=== PATIENT | male | born 1970 | race Caucasian/White ===

== ENCOUNTER 2016-09-26 08:33 | Inpatient (IN) | payer OTHER ==
[2016-09-26 09:30] VITALS: BMI 21.4
--- NOTE | 2016-09-26 12:05 | HP ---
COWS - Scale Resting Pulse: 1= MD 81-100 Sweatin=Flushed/Facial Moisture Restless Observation: 3= Extraneous Movement Pupil Size: 2= Moderately Dilated Bone or Joint Aches: 2= Severe Diffuse Aches Runny Nose/ Eye Tearin= Runny Nose/Eyes GI Upset > 30mins: 3= Vomiting/Diarrhea Tremor Observation: 2= Slight Tremor Visible Yawning Observation: 2= >3x During Session Anxiety or Irritability: 2=Irritable/Anxious Goose Flesh Skin: 0=Smooth Skin COWS Score: 21 Admission ROS BHS - HPI Chief Complaint: I NEED HELP TO STOP USING HEROIN,COCAINE Allergies/Adverse Reactions: Allergies Allergy/AdvReac Type Severity Reaction Status Date / Time Fish Containing Products Allergy Severe Rash Verified 09/26/16 10:30 History of Present Illness: THIS 45 YEARS OLD MALE WITH HEROIN AND COCAINE DEPENDENCE,WITHDRAWAL SYMPTOM, LAST DETOX 06/28 [place] HIV SINCE 09/26 NON COMPLIANCE,LAST MEDICATED 6 MONTHS AGO NICOTINE DEPENDENCE HEPATITIS C WEIGHT LOSS LONGEST PERIOD OF SOBRIETY 2 YEARS Exam Limitations: No Limitations - Ebola screening Have you traveled outside of the country in the last 21 days: No Have you been sick,other than usual withdrawal symptoms: No - Review of Systems Constitutional: Chills, Loss of Appetite, Malaise, Night Sweats, Changes in sleep, Weakness, Unintentional Wgt. Loss EENT: reports: Tearing, Nose Congestion Respiratory: reports: No Symptoms reported Cardiac: reports: No Symptoms Reported GI: reports: Diarrhea, Nausea, Vomiting, Abdominal cramping : reports: No Symptoms Reported Musculoskeletal: reports: Back Pain, Joint Pain, Muscle Pain, Joint Stiffness Integumentary: reports: Dryness Neuro: reports: Headache, Tremors Endocrine: reports: No Symptoms Reported Hematology: reports: No Symptoms Reported, Other (HIV) Psychiatric: reports: No Sypmtoms Reported, Judgement Intact, Mood/Affect Appropiate, Orientated x3 Patient History - Patient Medical History Hx Anemia: No Hx Asthma: No Hx Chronic Obstructive Pulmonary Disease (COPD): No Hx Cancer: No Hx Cardiac Disorders: No Hx Congestive Heart Failure: No Hx Hypertension: No Hx Hypercholesterolemia: No Hx Pacemaker: No HX Cerebrovascular Accident: Yes (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 ADMITTED [place]) Hx Seizures: No Hx Dementia: No Hx Diabetes: No Hx Gastrointestinal Disorders: No Hx Liver Disease: No Hx Genitourinary Disorders: No Hx Sexually Transmitted Disorders: No Hx Renal Disease (ESRD): No Hx Thyroid Disease: No Hx Human Immunodeficiency Virus (HIV): Yes (SINCE 09/26 NON COMPLIANCE LASTMEDICATION 6 MONTHS) Hx Hepatitis C: Yes (UNDER THE CARE OF PMD) Hx Depression: Yes (NO MED) Hx Suicide Attempt: No Hx Bipolar Disorder: No Hx Schizophrenia: No Other Medical History: NO SUICIDAL,NO HOMICIDAL - Patient Surgical History Past Surgical History: Yes Other Surgical History: Nasal sx R forearm abscess 09/21/16 [place],NON COMPLIANCE - PPD History Previous Implant?: Yes Documented Results: Negative w/o proof Implanted On Prior [facility] Admission?: No PPD to be Administered?: Yes - Smoking Cessation Smoking history: Current every day smoker Have you smoked in the past 12 months: Yes Aproximately how many cigarettes per day: 20 Hx Chewing Tobacco Use: No Initiated information on smoking cessation: Yes 'Breaking Loose' booklet given: 09/26/16 - Substance & Tx. History Hx Alcohol Use: No Hx Substance Use: Yes Substance Use Type: Cocaine, Heroin - Substances Abused Heroin Route: Injection Frequency: Daily Amount used: 20 bags Age of first use: 38 Date of Last Use: 09/26/16 Cocaine Route: Injection Frequency: 3-6 times per week Amount used: $20 Age of first use: 38 Date of Last Use: 09/22/16 Family Disease History - Family Disease History Family History: Denies Admission Physical Exam BHS - Vital Signs Vital Signs: Vital Signs - 24 hr 09/26/16 09:24 Temperature 97.1 F L Pulse Rate 85 Respiratory 18 Rate Blood Pressure 133/74 - Physical General Appearance: Yes: Moderate Distress, Tremorous, Irritable, Sweating, Anxious HEENTM: Yes: Within Normal Limits, Normal Voice, SAV, Pharynx Normal, Nasal Congestion Respiratory: Yes: Lungs Clear, Normal Breath Sounds, No Respiratory Distress Neck: Yes: Within Normal Limits Breast: Yes: Within Normal Limits Cardiology: Yes: Within Normal Limits, Regular Rhythm, Regular Rate, S1, S2 Abdominal: Yes: Within Normal Limits, Normal Bowel Sounds, Non Tender, Flat, Soft Genitourinary: Yes: Within Normal Limits Back: Yes: Muscle Spasm Musculoskeletal: Yes: Back pain, Joint Stiffness, Muscle Pain Extremities: Yes: Within Normal Limits, Normal Range of Motion, Tremors Neurological: Yes: silver lap machine tender II-XII NML intact, Fully Oriented, Alert, Motor Strength 5/5 Integumentary: Yes: Dry (S/P I AND D ABSCESS OF RIGHT FOREARM ON 09/21/16 AT [place] NON COMPLIANCE WITH MEDICATION) Lymphatic: Yes: Within Normal Limits - Diagnostic (1) Opioid dependence with withdrawal Current Visit: Yes Status: Acute (2) Cocaine dependence Current Visit: Yes Status: Acute (3) Abscess Current Visit: Yes Status: Acute (4) Hepatitis C Current Visit: Yes Status: Acute (5) Weight loss Current Visit: Yes Status: Acute (6) HIV (human immunodeficiency virus infection) Current Visit: Yes Status: Acute (7) Old cerebrovascular accident (CVA) without late effect Current Visit: Yes Status: Acute Cleared for Admission [facility] - Detox or Rehab [facility] Level of Care: Medically Managed Detox Regimen/Protocol: Methadone [facility] Breath Alcohol Content Breath Alcohol Content: 0 Urine Drug Screen - Results Drug Screen Negative: No Urine Drug Screen Results: SANA-Cocaine, OPI-Opiates, OXY-Oxycodone
[2016-09-26] MEDS ORDERED: MAGNESIUM HYDROX 2400MG/30ML ORAL SUSPENSION 30 ML CUP PO PRN (12:20)
[2016-09-26] MEDS ORDERED: MENTHOL/PHENOL 1 EACH UD MM PRN (12:20)
[2016-09-26] MEDS ORDERED: guaiFENesin/D-METHORPHAN HB 10 ML UNIT-DOSE CUPS PO PRN (12:20)
[2016-09-26] MEDS ORDERED: MAG HYDROX/AL HYDROX/SIMETH 30 ML UNIT-DOSE CUP PO PRN (12:20)
[2016-09-26] MEDS ORDERED: IBUPROFEN 400 MG TABLET (FP) PO PRN (12:20)
[2016-09-26] MEDS ORDERED: diphenhydrAMINE HCL 50 MG CAPSULE PO PRN (12:20)
[2016-09-26] MEDS ORDERED: MAGNESIUM CITRATE 300 ML BOTTLE PO PRN (12:20)
[2016-09-26] MEDS ORDERED: P-EPHED 60MG/TRIPROLIDI 2.5MG TABLET PO PRN (12:20)
[2016-09-26] MEDS ORDERED: ACETAMINOPHEN 325 MG TABLET (FP) PO PRN (12:20)
[2016-09-26] MEDS ORDERED: hydrOXYzine PAMOATE 50 MG CAPSULE (FP) PO PRN (12:20)
[2016-09-26] MEDS ORDERED: LOPERAMIDE HCL 2 MG CAPSULE PO PRN (12:20)
[2016-09-26] MEDS ORDERED: METHADONE HCL 10 MG TABLET (FOR DETOX USE ONLY) PO ONE ×2 (12:31→23:00)
[2016-09-26] MEDS: NICOTINE 21 MG/24 HOURS TOPICAL PATCH TD SCH (13:36)
[2016-09-26] MEDS: BACITRACIN 0.9 GM PACKET TP SCH ×2 (13:37→21:50)
[2016-09-26] MEDS: diazePAM 5 MG TABLET PO PRN (13:37)
--- NOTE | 2016-09-26 15:27 | EKG ---
Test Reason : Blood Pressure : / mmHG Vent. Rate : 078 BPM Atrial Rate : 078 BPM P-R Int : 146 ms QRS Dur : 086 ms QT Int : 410 ms P-R-T Axes : 075 041 -10 degrees QTc Int : 467 ms NORMAL SINUS RHYTHM VOLTAGE CRITERIA FOR LEFT VENTRICULAR HYPERTROPHY ABNORMAL ECG NO PREVIOUS ECGS AVAILABLE Confirmed by PROSPER GARZON MD ([id number]) on 09/26/2016 3:27:20 PM Referred By: John Domingeuz Confirmed By:PORSPER GARZON MD
--- NOTE | 2016-09-26 15:31 | CONSULT ---
[facility] Psychiatric Consult - Data Date of interview: 09/26/16 Admission source: [facility] Identifying data: This is 45 years old male with no psychiatric hospitalization history intoxicated with : Opioids, Cocaine and Nicotine Substance Abuse History: - Smoking Cessation. Smoking history: Current every day smoker. Have you smoked in the past 12 months: Yes. Aproximately how many cigarettes per day: 20. Hx Chewing Tobacco Use: No. Initiated information on smoking cessation: Yes. 'Breaking Loose' booklet given: 09/26/16. - Substance & Tx. History. Hx Alcohol Use: No. Hx Substance Use: Yes. Substance Use Type : Cocaine, Heroin. - Substances Abused. Heroin. Route: Injection. Frequency: Daily. Amount used: 20 bags. Age of first use: 38. Date of Last Use: 09/26/16. Cocaine. Route: Injection. Frequency: 3-6 times per week. Amount used: $20. Age of first use: 38. Date of Last Use: 09/22/16 Medical History: This is 45 years old male with no psychiatric hospitalization history intoxicated with : Opioids, Cocaine and Nicotine Psychiatric History: Patient reports history of anxiety, reports insomnia, reports taking Remeron 30mg po qhs prior to admission Physical/Sexual Abuse/Trauma History: Denies Additional Comment: Remeron 30mg po qhs Mental Status Exam - Mental Status Exam Alert and Oriented to: Person Cognitive Function: Fair Patient Appearance: Well Groomed Mood: Sad, Anxious Affect: Mood Congruent Patient Behavior: Cooperative Speech Pattern: Appropriate Voice Loudness: Mildly Soft/Quiet Thought Process: Goal Oriented Thought Disorder: Being Controlled Hallucinations: Denies Suicidal Ideation: Denies Homicidal Ideation: Denies Insight/Judgement: Fair Sleep: Difficulty falling asleep Appetite: Fair Muscle strength/Tone: Normal Gait/Station: Normal Additional Comments: Remeron 30mg po qhs Psychiatric Findings - Problem List ([place] 1, 2,3) (1) Cocaine dependence Current Visit: Yes Status: Acute (2) Opioid dependence with withdrawal Current Visit: Yes Status: Acute (3) Nicotine dependence Current Visit: Yes Status: Acute (4) Drug-induced mood disorder Current Visit: Yes Status: Acute - Initial Treatment Plan Initial Treatment Plan: Remeron 30mg po qhs
[2016-09-26] MEDS: CEPHALEXIN MONOHYDRATE 500 MG CAPSULE (UD) PO SCH ×2 (17:28→23:04)
[2016-09-26 18:42] LABS: URINE APPEARANCE CLEAR; URINE BILIRUBIN NEGATIVE (NEGATIVE); URINE BLOOD NEGATIVE (NEGATIVE); URINE COLOR YELLOW; URINE GLUCOSE (UA) NEGATIVE (NEGATIVE); URINE KETONE NEGATIVE (NEGATIVE); URINE LEUK ESTERASE NEGATIVE (NEGATIVE); URINE NITRITE NEGATIVE (NEGATIVE); URINE UROBILINOGEN NEGATIVE E.U./dl (0.2-1.0)
[2016-09-26 18:45] LABS: URINE PROTEIN 1+ (NEGATIVE)
[2016-09-26 18:54] LABS: URINE MUCUS RARE; URINE RBC 10 /hpf (0-3); URINE WBC 1 /hpf (3-5)
[2016-09-26 20:49] LABS: URINE SPERM RARE
[2016-09-26] MEDS: cloNIDine HCL 0.1 MG TABLET PO SCH (23:03)
[2016-09-26] MEDS: MIRTAZAPINE 30 MG TABLET (FP) PO SCH (23:03)
[2016-09-26] MEDS: THIAMINE HCL 100 MG TABLET (FP) PO SCH (23:03)
[2016-09-27] MEDS: CEPHALEXIN MONOHYDRATE 500 MG CAPSULE (UD) PO SCH ×4 (06:05→23:00)
[2016-09-27] MEDS ORDERED: METHADONE HCL 10 MG TABLET (FOR DETOX USE ONLY) PO ONE (10:00)
[2016-09-27] MEDS: diazePAM 5 MG TABLET PO PRN (10:25)
[2016-09-27] MEDS: BACITRACIN 0.9 GM PACKET TP SCH ×2 (10:25→22:27)
[2016-09-27] MEDS: PRENATAL VITAMINS W/ FOLIC ACID TABLET (FP) PO SCH (10:25)
[2016-09-27] MEDS: NICOTINE 21 MG/24 HOURS TOPICAL PATCH TD SCH (10:25)
[2016-09-27] MEDS: cloNIDine HCL 0.1 MG TABLET PO SCH ×2 (10:25→22:27)
[2016-09-27 10:27] LABS: MCH 29.6 pg (25.7-33.7); MCHC 33.3 g/dl (32.0-35.9); MEAN CELL VOLUME 88.8 fl (80-96); PLATELET COUNT 164 K/MM3 (134-434); RDW 13.8 % (11.9-15.9); WHITE BLOOD COUNT 5.4 K/mm3 (4.0-10.0)
[2016-09-27 10:29] LABS: ALBUMIN 3.2 g/dl (3.4-5.0); ANION GAP 7 (8-16); BILIRUBIN,TOTAL 0.4 mg/dL (0.2-1.0); CALCIUM 8.7 mg/dL (8.5-10.1); CO2 28 mmol/L (21-32); CREATININE 0.8 mg/dL (0.7-1.3); GLUCOSE,RANDOM 122 mg/dL (74-106); SGOT/AST 32 U/L (15-37); SGPT/ALT 43 U/L (12-78); TOT PROT 6.8 g/dl (6.4-8.2)
[2016-09-27 10:30] LABS: ALK PHOS 65 U/L (45-117)
--- NOTE | 2016-09-27 11:47 | PN ---
S COWS - Scale Resting Pulse: 1= [place] 81-100 Sweatin= Chills/Flushing Restless Observation: 3= Extraneous Movement Pupil Size: 2= Moderately Dilated Bone or Joint Aches: 4=Acute Joint/Muscle Pain Runny Nose/ Eye Tearin= Nasal Congestion GI Upset > 30mins: 1= Stomach Cramp Tremor Observation of Outstretched Hands: 2= Slight Tremor Visible Yawning Observation: 1= 1-2x During Session Anxiety or Irritability: 1=Feels Anxious/Irritable Goose Flesh Skin: 0=Smooth Skin COWS Score: 17 S Progress Note (SOAP) Subjective: ANXIETY,IRRITABILITY,"I'M DOPE SICK", INTERMITTENT SLEE. Objective: 09/27/16 11:48 Vital Signs Temperature 97.5 F L 09/27/16 10:39 Pulse Rate 91 H 09/27/16 10:39 Respiratory Rate 20 09/27/16 10:39 Blood Pressure 123/63 09/27/16 10:39 O2 Sat by Pulse Oximetry (%) Laboratory Last Values WBC 5.4 K/mm3 (4.0-10.0) 09/27/16 07:30 RBC 4.52 M/mm3 (4.00-5.60) 09/27/16 07:30 Hgb 13.4 GM/dL (11.7-16.9) 09/27/16 07:30 Hct 40.1 % (35.4-49) 09/27/16 07:30 MCV 88.8 fl (80-96) 09/27/16 07:30 MCHC 33.3 g/dl (32.0-35.9) 09/27/16 07:30 RDW 13.8 % (11.9-15.9) 09/27/16 07:30 Plt Count 164 K/MM3 (134-434) 09/27/16 07:30 MPV 8.0 fl (7.5-11.1) 09/27/16 07:30 Sodium 141 mmol/L (136-145) 09/27/16 07:30 Potassium 3.5 mmol/L (3.5-5.1) 09/27/16 07:30 Chloride 106 mmol/L (98-107) 09/27/16 07:30 Carbon Dioxide 28 mmol/L (21-32) 09/27/16 07:30 Anion Gap 7 (8-16) L 09/27/16 07:30 BUN 10 mg/dL (7-18) 09/27/16 07:30 Creatinine 0.8 mg/dL (0.7-1.3) 09/27/16 07:30 Creat Clearance w eGFR > 60 (>60) 09/27/16 07:30 Random Glucose 122 mg/dL (74-106) H 09/27/16 07:30 Calcium 8.7 mg/dL (8.5-10.1) 09/27/16 07:30 Total Bilirubin 0.4 mg/dL (0.2-1.0) 09/27/16 07:30 AST 32 U/L (15-37) 09/27/16 07:30 ALT 43 U/L (12-78) 09/27/16 07:30 Alkaline Phosphatase 65 U/L (45-117) 09/27/16 07:30 Total Protein 6.8 g/dl (6.4-8.2) 09/27/16 07:30 Albumin 3.2 g/dl (3.4-5.0) L 09/27/16 07:30 Urine Color Yellow 09/26/16 13:00 Urine Appearance Clear 09/26/16 13:00 Urine pH 5.0 (5.0-8.0) 09/26/16 13:00 Ur Specific [place] 1.025 (1.001-1.035) 09/26/16 13:00 Urine Protein 1+ (NEGATIVE) H 09/26/16 13:00 Urine Glucose (UA) Negative (NEGATIVE) 09/26/16 13:00 Urine Ketones Negative (NEGATIVE) 09/26/16 13:00 Urine Blood Negative (NEGATIVE) 09/26/16 13:00 Urine Nitrite Negative (NEGATIVE) 09/26/16 13:00 Urine Bilirubin Negative (NEGATIVE) 09/26/16 13:00 Urine Urobilinogen Negative E.U./dl (0.2-1.0) 09/26/16 13:00 Ur Leukocyte Esterase Negative (NEGATIVE) 09/26/16 13:00 Urine RBC 10 /hpf (0-3) 09/26/16 13:00 Urine WBC 1 /hpf (3-5) 09/26/16 13:00 Ur Epithelial Cells Rare /hpf (FEW) 09/26/16 13:00 Urine Mucus Rare 09/26/16 13:00 Assessment: 09/27/16 11:48 WITHDRAWAL SX Plan: CONTINUE DETOX
[2016-09-27 11:54] LABS: SICKLE CELL SCREEN NEGATIVE (NEGATIVE)
[2016-09-27] MEDS: THIAMINE HCL 100 MG TABLET (FP) PO SCH (22:27)
[2016-09-27] MEDS: MIRTAZAPINE 30 MG TABLET (FP) PO SCH (22:27)
[2016-09-28] MEDS: CEPHALEXIN MONOHYDRATE 500 MG CAPSULE (UD) PO SCH ×4 (05:55→23:30)
[2016-09-28] MEDS: CYCLOBENZAPRINE HCL 10 MG TABLET (FP) PO PRN (05:55)
[2016-09-28] MEDS: diazePAM 5 MG TABLET PO PRN (05:55)
[2016-09-28] MEDS ORDERED: METHADONE HCL 5 MG TABLET (FOR DETOX USE ONLY) PO ONE (10:00)
[2016-09-28] MEDS: BACITRACIN 0.9 GM PACKET TP SCH ×2 (10:53→23:33)
[2016-09-28] MEDS: PRENATAL VITAMINS W/ FOLIC ACID TABLET (FP) PO SCH (10:53)
[2016-09-28] MEDS: cloNIDine HCL 0.1 MG TABLET PO SCH ×2 (10:54→23:33)
[2016-09-28] MEDS: NICOTINE 21 MG/24 HOURS TOPICAL PATCH TD SCH (10:54)
--- NOTE | 2016-09-28 15:55 | PN ---
S COWS - Scale Resting Pulse: 1= IN 81-100 Sweatin=Flushed/Facial Moisture Restless Observation: 1= Difficult to Sit Still Pupil Size: 0= Normal to Room Light Bone or Joint Aches: 2= Severe Diffuse Aches Runny Nose/ Eye Tearin= None GI Upset > 30mins: 2= Nausea/Diarrhea Tremor Observation of Outstretched Hands: 2= Slight Tremor Visible Yawning Observation: 1= 1-2x During Session Anxiety or Irritability: 2=Irritable/Anxious Goose Flesh Skin: 3=Piloerection COWS Score: 16 S Progress Note (SOAP) Subjective: Nausea, Interrupted Sleep, Tremors, Sweating, Body Aches. Objective: PT. A & O X 3. 09/28/16 15:54 Vital Signs Temperature 96.6 F L 09/28/16 13:30 Pulse Rate 96 H 09/28/16 13:30 Respiratory Rate 19 09/28/16 13:30 Blood Pressure 125/71 09/28/16 13:30 O2 Sat by Pulse Oximetry (%) Laboratory Last Values WBC 5.4 K/mm3 (4.0-10.0) 09/27/16 07:30 RBC 4.52 M/mm3 (4.00-5.60) 09/27/16 07:30 Hgb 13.4 GM/dL (11.7-16.9) 09/27/16 07:30 Hct 40.1 % (35.4-49) 09/27/16 07:30 MCV 88.8 fl (80-96) 09/27/16 07:30 MCHC 33.3 g/dl (32.0-35.9) 09/27/16 07:30 RDW 13.8 % (11.9-15.9) 09/27/16 07:30 Plt Count 164 K/MM3 (134-434) 09/27/16 07:30 MPV 8.0 fl (7.5-11.1) 09/27/16 07:30 Sickle Cell Screen Negative (NEGATIVE) 09/27/16 07:30 Sodium 141 mmol/L (136-145) 09/27/16 07:30 Potassium 3.5 mmol/L (3.5-5.1) 09/27/16 07:30 Chloride 106 mmol/L (98-107) 09/27/16 07:30 Carbon Dioxide 28 mmol/L (21-32) 09/27/16 07:30 Anion Gap 7 (8-16) L 09/27/16 07:30 BUN 10 mg/dL (7-18) 09/27/16 07:30 Creatinine 0.8 mg/dL (0.7-1.3) 09/27/16 07:30 Creat Clearance w eGFR > 60 (>60) 09/27/16 07:30 Random Glucose 122 mg/dL (74-106) H 09/27/16 07:30 Calcium 8.7 mg/dL (8.5-10.1) 09/27/16 07:30 Total Bilirubin 0.4 mg/dL (0.2-1.0) 09/27/16 07:30 AST 32 U/L (15-37) 09/27/16 07:30 ALT 43 U/L (12-78) 09/27/16 07:30 Alkaline Phosphatase 65 U/L (45-117) 09/27/16 07:30 Total Protein 6.8 g/dl (6.4-8.2) 09/27/16 07:30 Albumin 3.2 g/dl (3.4-5.0) L 09/27/16 07:30 Urine Color Yellow 09/26/16 13:00 Urine Appearance Clear 09/26/16 13:00 Urine pH 5.0 (5.0-8.0) 09/26/16 13:00 Ur Specific [place] 1.025 (1.001-1.035) 09/26/16 13:00 Urine Protein 1+ (NEGATIVE) H 09/26/16 13:00 Urine Glucose (UA) Negative (NEGATIVE) 09/26/16 13:00 Urine Ketones Negative (NEGATIVE) 09/26/16 13:00 Urine Blood Negative (NEGATIVE) 09/26/16 13:00 Urine Nitrite Negative (NEGATIVE) 09/26/16 13:00 Urine Bilirubin Negative (NEGATIVE) 09/26/16 13:00 Urine Urobilinogen Negative E.U./dl (0.2-1.0) 09/26/16 13:00 Ur Leukocyte Esterase Negative (NEGATIVE) 09/26/16 13:00 Urine RBC 10 /hpf (0-3) 09/26/16 13:00 Urine WBC 1 /hpf (3-5) 09/26/16 13:00 Ur Epithelial Cells Rare /hpf (FEW) 09/26/16 13:00 Urine Mucus Rare 09/26/16 13:00 RPR Titer Nonreactive (NONREACTIVE) 09/27/16 07:30 Hepatitis C Antibody >11.0 s/co ratio (0.0-0.9) H 09/27/16 07:30 LABS NOTED. Assessment: 09/28/16 15:55 WITHDRAWAL SYMPTOMS. Plan: CONTINUE DETOX. ADVISED PATIENT TO FOLLOW-UP WITH IP COUNSEL / REHAB MEDICAL PROVIDER AFTER DISCHARGE FROM DETOX FOR GENERAL MEDICAL ASSESSMENT AND FOR ANY ABNORMAL ADMISSION LAB VALUES.
[2016-09-28] MEDS: MIRTAZAPINE 30 MG TABLET (FP) PO SCH (23:33)
[2016-09-28] MEDS: THIAMINE HCL 100 MG TABLET (FP) PO SCH (23:33)
[2016-09-29] MEDS: CYCLOBENZAPRINE HCL 10 MG TABLET (FP) PO PRN (05:35)
[2016-09-29] MEDS: diazePAM 5 MG TABLET PO PRN (05:35)
[2016-09-29] MEDS: CEPHALEXIN MONOHYDRATE 500 MG CAPSULE (UD) PO SCH ×4 (05:35→23:06)
[2016-09-29] MEDS ORDERED: METHADONE HCL 5 MG TABLET (FOR DETOX USE ONLY) PO ONE (10:00)
[2016-09-29] MEDS: cloNIDine HCL 0.1 MG TABLET PO SCH ×2 (11:10→22:43)
[2016-09-29] MEDS: PRENATAL VITAMINS W/ FOLIC ACID TABLET (FP) PO SCH (11:10)
[2016-09-29] MEDS: BACITRACIN 0.9 GM PACKET TP SCH ×2 (11:10→22:42)
[2016-09-29] MEDS: NICOTINE 21 MG/24 HOURS TOPICAL PATCH TD SCH (11:13)
--- NOTE | 2016-09-29 12:11 | PN ---
[facility] Progress Note (SOAP) Subjective: N/V/D, headache, back pain, irritability, anxious, body aches (vomited x 1, diarrhea x 3) Objective: 09/29/16 12:08 Last Vital Signs Temp Pulse Resp BP Pulse Ox 98.1 F 66 16 102/76 09/29/16 12:06 09/29/16 12:06 09/29/16 12:06 09/29/16 12:06 Laboratory Tests 09/26/16 09/27/16 09/27/16 13:00 07:30 07:30 WBC 5.4 RBC 4.52 Hgb 13.4 Hct 40.1 MCV 88.8 MCHC 33.3 RDW 13.8 Plt Count 164 MPV 8.0 Sickle Cell Screen Negative Sodium Potassium Chloride Carbon Dioxide Anion Gap BUN Creatinine Creat Clearance w eGFR Random Glucose Calcium Total Bilirubin AST ALT Alkaline Phosphatase Total Protein Albumin Urine Color Yellow Urine Appearance Clear Urine pH 5.0 Ur Specific [place] 1.025 Urine Protein 1+ H Urine Glucose (UA) Negative Urine Ketones Negative Urine Blood Negative Urine Nitrite Negative Urine Bilirubin Negative Urine Urobilinogen Negative Ur Leukocyte Esterase Negative Urine RBC 10 Urine WBC 1 Ur Epithelial Cells Rare Urine Mucus Rare RPR Titer Hepatitis C Antibody >11.0 H 09/27/16 09/27/16 07:30 07:30 WBC RBC Hgb Hct MCV MCHC RDW Plt Count MPV Sickle Cell Screen Sodium 141 Potassium 3.5 Chloride 106 Carbon Dioxide 28 Anion Gap 7 L BUN 10 Creatinine 0.8 Creat Clearance w eGFR > 60 Random Glucose 122 H Calcium 8.7 Total Bilirubin 0.4 AST 32 ALT 43 Alkaline Phosphatase 65 Total Protein 6.8 Albumin 3.2 L Urine Color Urine Appearance Urine pH Ur Specific [place] Urine Protein Urine Glucose (UA) Urine Ketones Urine Blood Urine Nitrite Urine Bilirubin Urine Urobilinogen Ur Leukocyte Esterase Urine RBC Urine WBC Ur Epithelial Cells Urine Mucus RPR Titer Nonreactive Hepatitis C Antibody Labs noted: UA 1+ protein Assessment: 09/29/16 12:10 Withdrawal symptoms Noted with proteinuria Plan: Continue detox Proteinuria: encouraged to drink lots of water, repeat UA
[2016-09-29] MEDS: THIAMINE HCL 100 MG TABLET (FP) PO SCH (22:43)
[2016-09-29] MEDS: MIRTAZAPINE 30 MG TABLET (FP) PO SCH (22:43)
[2016-09-30] MEDS: CEPHALEXIN MONOHYDRATE 500 MG CAPSULE (UD) PO SCH ×4 (07:07→23:23)
[2016-09-30] MEDS ORDERED: METHADONE HCL 10 MG TABLET (FOR DETOX USE ONLY) PO ONE (10:00)
[2016-09-30] MEDS: BACITRACIN 0.9 GM PACKET TP SCH ×2 (10:31→22:18)
[2016-09-30] MEDS: PRENATAL VITAMINS W/ FOLIC ACID TABLET (FP) PO SCH (10:31)
[2016-09-30] MEDS: cloNIDine HCL 0.1 MG TABLET PO SCH ×2 (10:31→22:18)
[2016-09-30] MEDS: NICOTINE 21 MG/24 HOURS TOPICAL PATCH TD SCH (10:31)
--- NOTE | 2016-09-30 13:45 | PN ---
[facility] Progress Note (SOAP) Subjective: Sweating,interrupted sleep,restless Objective: 09/30/16 13:43 Vital Signs - 8 hr 09/30/16 09/30/16 09/30/16 06:27 09:55 13:24 Temperature 97.5 F L 96 F L 97 F L Pulse Rate 100 H 98 H 96 H Respiratory 18 18 20 Rate Blood Pressure 109/65 129/88 118/68 Laboratory Last Values WBC 5.4 K/mm3 (4.0-10.0) 09/27/16 07:30 RBC 4.52 M/mm3 (4.00-5.60) 09/27/16 07:30 Hgb 13.4 GM/dL (11.7-16.9) 09/27/16 07:30 Hct 40.1 % (35.4-49) 09/27/16 07:30 MCV 88.8 fl (80-96) 09/27/16 07:30 MCHC 33.3 g/dl (32.0-35.9) 09/27/16 07:30 RDW 13.8 % (11.9-15.9) 09/27/16 07:30 Plt Count 164 K/MM3 (134-434) 09/27/16 07:30 MPV 8.0 fl (7.5-11.1) 09/27/16 07:30 Sickle Cell Screen Negative (NEGATIVE) 09/27/16 07:30 Sodium 141 mmol/L (136-145) 09/27/16 07:30 Potassium 3.5 mmol/L (3.5-5.1) 09/27/16 07:30 Chloride 106 mmol/L (98-107) 09/27/16 07:30 Carbon Dioxide 28 mmol/L (21-32) 09/27/16 07:30 Anion Gap 7 (8-16) L 09/27/16 07:30 BUN 10 mg/dL (7-18) 09/27/16 07:30 Creatinine 0.8 mg/dL (0.7-1.3) 09/27/16 07:30 Creat Clearance w eGFR > 60 (>60) 09/27/16 07:30 Random Glucose 122 mg/dL (74-106) H 09/27/16 07:30 Calcium 8.7 mg/dL (8.5-10.1) 09/27/16 07:30 Total Bilirubin 0.4 mg/dL (0.2-1.0) 09/27/16 07:30 AST 32 U/L (15-37) 09/27/16 07:30 ALT 43 U/L (12-78) 09/27/16 07:30 Alkaline Phosphatase 65 U/L (45-117) 09/27/16 07:30 Total Protein 6.8 g/dl (6.4-8.2) 09/27/16 07:30 Albumin 3.2 g/dl (3.4-5.0) L 09/27/16 07:30 Urine Color Yellow 09/26/16 13:00 Urine Appearance Clear 09/26/16 13:00 Urine pH 5.0 (5.0-8.0) 09/26/16 13:00 Ur Specific [place] 1.025 (1.001-1.035) 09/26/16 13:00 Urine Protein 1+ (NEGATIVE) H 09/26/16 13:00 Urine Glucose (UA) Negative (NEGATIVE) 09/26/16 13:00 Urine Ketones Negative (NEGATIVE) 09/26/16 13:00 Urine Blood Negative (NEGATIVE) 09/26/16 13:00 Urine Nitrite Negative (NEGATIVE) 09/26/16 13:00 Urine Bilirubin Negative (NEGATIVE) 09/26/16 13:00 Urine Urobilinogen Negative E.U./dl (0.2-1.0) 09/26/16 13:00 Ur Leukocyte Esterase Negative (NEGATIVE) 09/26/16 13:00 Urine RBC 10 /hpf (0-3) 09/26/16 13:00 Urine WBC 1 /hpf (3-5) 09/26/16 13:00 Ur Epithelial Cells Rare /hpf (FEW) 09/26/16 13:00 Urine Mucus Rare 09/26/16 13:00 RPR Titer Nonreactive (NONREACTIVE) 09/27/16 07:30 Hepatitis C Antibody >11.0 s/co ratio (0.0-0.9) H 09/27/16 07:30 labs noted Assessment: 09/30/16 13:44 Withdrawal sx Plan: Continue detox
[2016-09-30 15:42] LABS: URINE APPEARANCE SLCLOUDY; URINE BILIRUBIN NEGATIVE (NEGATIVE); URINE BLOOD NEGATIVE (NEGATIVE); URINE COLOR AMBER; URINE GLUCOSE (UA) NEGATIVE (NEGATIVE); URINE KETONE NEGATIVE (NEGATIVE); URINE LEUK ESTERASE NEGATIVE (NEGATIVE); URINE NITRITE NEGATIVE (NEGATIVE); URINE PROTEIN NEGATIVE (NEGATIVE); URINE UROBILINOGEN 2.0 E.U/dl E.U./dl (0.2-1.0)
[2016-09-30] MEDS: MIRTAZAPINE 30 MG TABLET (FP) PO SCH (22:18)
[2016-09-30] MEDS: THIAMINE HCL 100 MG TABLET (FP) PO SCH (22:19)
[2016-10-01] MEDS: CEPHALEXIN MONOHYDRATE 500 MG CAPSULE (UD) PO SCH (05:59)
[2016-10-01] MEDS: CYCLOBENZAPRINE HCL 10 MG TABLET (FP) PO PRN (05:59)
[2016-10-01] MEDS ORDERED: METHADONE HCL 5 MG TABLET (FOR DETOX USE ONLY) PO ONE (06:00)
[2016-10-01 06:22] VITALS: BP 135/71; PULSE 105; TEMP 97.5
[2016-10-01] MEDS: PRENATAL VITAMINS W/ FOLIC ACID TABLET (FP) PO SCH (09:09)
[2016-10-01] MEDS: NICOTINE 21 MG/24 HOURS TOPICAL PATCH TD SCH (09:09)
[2016-10-01] MEDS: BACITRACIN 0.9 GM PACKET TP SCH (09:09)
--- NOTE | 2016-10-01 12:39 | DS ---
[facility] Detox Discharge Summary Admission Date: 09/26/16 Discharge Date: 10/01/16 - History Present History: Alcohol Dependence, Opioid Dependence Additional Comments: DETOX COMPLETED. ALERT O X 3. NAD. PT INSTRUCTED TO F/U WITH PRIMARY CARE FOR MEDICAL MANAGEMENT OF COMORBID CONDITIONS. Pertinent Past History: HIV+ HEP C OLD CVA LEFT SIDE, NO RESIDUAL EFFECTS. WEIGHT LOSS ABSCESS RIGHT FA - Physical Exam Results Vital Signs: Vital Signs Temperature 97.5 F L 10/01/16 06:21 Pulse Rate 105 H 10/01/16 06:21 Respiratory Rate 16 10/01/16 06:21 Blood Pressure 135/71 10/01/16 06:21 O2 Sat by Pulse Oximetry (%) Pertinent Admission Physical Exam Findings: WITHDRAWAL SX Laboratory Last Values WBC 5.4 K/mm3 (4.0-10.0) 09/27/16 07:30 RBC 4.52 M/mm3 (4.00-5.60) 09/27/16 07:30 Hgb 13.4 GM/dL (11.7-16.9) 09/27/16 07:30 Hct 40.1 % (35.4-49) 09/27/16 07:30 MCV 88.8 fl (80-96) 09/27/16 07:30 MCHC 33.3 g/dl (32.0-35.9) 09/27/16 07:30 RDW 13.8 % (11.9-15.9) 09/27/16 07:30 Plt Count 164 K/MM3 (134-434) 09/27/16 07:30 MPV 8.0 fl (7.5-11.1) 09/27/16 07:30 Sickle Cell Screen Negative (NEGATIVE) 09/27/16 07:30 Sodium 141 mmol/L (136-145) 09/27/16 07:30 Potassium 3.5 mmol/L (3.5-5.1) 09/27/16 07:30 Chloride 106 mmol/L (98-107) 09/27/16 07:30 Carbon Dioxide 28 mmol/L (21-32) 09/27/16 07:30 Anion Gap 7 (8-16) L 09/27/16 07:30 BUN 10 mg/dL (7-18) 09/27/16 07:30 Creatinine 0.8 mg/dL (0.7-1.3) 09/27/16 07:30 Creat Clearance w eGFR > 60 (>60) 09/27/16 07:30 Random Glucose 122 mg/dL (74-106) H 09/27/16 07:30 Calcium 8.7 mg/dL (8.5-10.1) 09/27/16 07:30 Total Bilirubin 0.4 mg/dL (0.2-1.0) 09/27/16 07:30 AST 32 U/L (15-37) 09/27/16 07:30 ALT 43 U/L (12-78) 09/27/16 07:30 Alkaline Phosphatase 65 U/L (45-117) 09/27/16 07:30 Total Protein 6.8 g/dl (6.4-8.2) 09/27/16 07:30 Albumin 3.2 g/dl (3.4-5.0) L 09/27/16 07:30 Urine Color [place] 09/30/16 13:00 Urine Appearance Slcloudy 09/30/16 13:00 Urine pH 6.0 (5.0-8.0) 09/30/16 13:00 Ur Specific [place] 1.020 (1.001-1.035) 09/30/16 13:00 Urine Protein Negative (NEGATIVE) 09/30/16 13:00 Urine Glucose (UA) Negative (NEGATIVE) 09/30/16 13:00 Urine Ketones Negative (NEGATIVE) 09/30/16 13:00 Urine Blood Negative (NEGATIVE) 09/30/16 13:00 Urine Nitrite Negative (NEGATIVE) 09/30/16 13:00 Urine Bilirubin Negative (NEGATIVE) 09/30/16 13:00 Urine Urobilinogen 2.0 e.u/dl E.U./dl (0.2-1.0) 09/30/16 13:00 Ur Leukocyte Esterase Negative (NEGATIVE) 09/30/16 13:00 Urine RBC 10 /hpf (0-3) 09/26/16 13:00 Urine WBC 1 /hpf (3-5) 09/26/16 13:00 Ur Epithelial Cells Rare /hpf (FEW) 09/26/16 13:00 Urine Mucus Rare 09/26/16 13:00 RPR Titer Nonreactive (NONREACTIVE) 09/27/16 07:30 Hepatitis C Antibody >11.0 s/co ratio (0.0-0.9) H 09/27/16 07:30 PREVIOUS HX HEP C+ - Treatment Hospital Course: Detox Protocol Followed, Detoxed Safely, Responded well, Discharged Condition Good - Medication Discharge Medications: Ambulatory Orders Mirtazapine [Remeron -] 30 mg PO HS #30 tablet 09/26/16 Mirtazapine [Remeron -] 30 mg PO HS #30 tablet 09/26/16 Cephalexin Monohydrate [Keflex -] 500 mg PO Q6HPO #20 cap 10/01/16 - Diagnosis (1) Abscess Status: Acute (2) HIV (human immunodeficiency virus infection) Status: Chronic (3) Hepatitis C Status: Chronic Qualifiers: Viral hepatitis chronicity: chronic Hepatic coma status: without hepatic coma Qualified Code(s): B18.2 - Chronic viral hepatitis C (4) Nicotine dependence Status: Acute Qualifiers: Nicotine product type: cigarettes Substance use status: in withdrawal Qualified Code(s): F17.213 - Nicotine dependence, cigarettes, with withdrawal (5) Old cerebrovascular accident (CVA) without late effect Status: Resolved (6) Opioid dependence with withdrawal Status: Acute (7) Weight loss Status: Chronic (8) Cocaine dependence, uncomplicated Status: Acute (9) Drug-induced mood disorder Status: Acute - AMA Did Patient Leave Against Medical Advice: No
[2016-10-02 00:11] LABS: HCV LOG 10 7.486 (.)
== END 2016-10-01 09:29 | disposition home or self-care (01) | DRG 773 ==
LOC: YASAS 08:33 → Y3N 11:47
PROVIDERS: ADMIT Internal Medicine Addiction Medicine; ATTEND Internal Medicine Addiction Medicine
PROC: HZ2ZZZZ Detoxification Services for Substance Abuse Treatment (ICD-10-PCS; principal; 2016-10-01)
DX: F11.23 Opioid dependence with withdrawal (principal); F14.20 Cocaine dependence, uncomplicated; F17.213 Nicotine dependence, cigarettes, with withdrawal; F19.24 Other psychoactive substance dependence with psychoactive substance-induced mood disorder; B18.2 Chronic viral hepatitis C; Z21 Asymptomatic human immunodeficiency virus [HIV] infection status; L02.413 Cutaneous abscess of right upper limb; R63.4 Abnormal weight loss; Z68.21 Body mass index [BMI] 21.0-21.9, adult
CPT/HCPCS: 36415; 80053; 81003; 81015; 85027; 85660; 86593; 87522; 93005; 93010